=== PATIENT | female | born 1960 | race African-American/Black ===

== ENCOUNTER → 2018-04-12 | Outpatient (CLI) | payer OTHER ==
[~2018-04-12] MED LIST: DIATRIZOATE MEGL/DIATRIZOA SOD 30 ML BTL PO ONE; IOPAMIDOL 370 MG/ML 200 ML INFUS..BTL INJ ONE; SODIUM CHLORIDE 0.9% 50ML 50 ML ONE
--- NOTE | 2018-04-12 16:37 | Diagnostic Imaging Report ---
CT Abdomen And Pelvis with Intravenous Contrast INDICATION: Fever of unknown origin, elevated C-reactive protein TECHNIQUE: Thin collimation axial images obtained from the diaphragm to the level of the pubic symphysis following the uneventful administration of oral and 100 cc of low osmolar, nonionic intravenous contrast. RADIATION DOSE: Total DLP: 182.75 mGy*cm Estimated effective dose: (DLP x 0.015 x size factor) mSv CTDIvol has been reviewed. It is below the limits set by the Radiation Protocol Committee (RPC). COMPARISON: None. ABDOMEN FINDINGS: Lung Bases: Mild bibasilar atelectasis. Pericardial effusion measures 10 mm. The distal esophagus is patulous. No hiatal hernia. Liver: Decreased in attenuation relative to the spleen. This may be due to timing of the contrast bolus, however. No evidence for mass. Gallbladder: Present and appears normal. No biliary ductal dilatation. Pancreas: Normal attenuation without mass or ductal dilatation. Spleen: Normal in size. No evidence of mass.. Adrenal Glands: No evidence for mass. Kidneys: Right: Low attenuating lesion in the upper pole measures 4 mm and has the appearance of a cyst. No enhancing lesion. No hydronephrosis. Left: Low attenuating lesion the upper pole measures 9 mm and has the appearance of a cyst. No enhancing lesion. No hydronephrosis. Lymph Nodes: No enlarged abdominal or periaortic lymph nodes.. Aorta: Normal in diameter. Celiac artery branching is conventional. PELVIS FINDINGS: Bowel: Stomach: Laparoscopic gastric band is in appropriate orientation. The stomach is filled with enteric contrast. No mural thickening of the stomach. Small Bowel: Normal in caliber with normal wall thickness. The terminal ileum, while unopacified, demonstrates no evidence of mural thickening or hyperemia. Large Bowel: Normal in caliber with normal wall thickness. There are several scattered diverticula throughout the colon without associated inflammation. Appendix: Normal appendix. Bladder: Well distended and is normal. No ureteral dilatation. The uterus is present and normal in morphology. There are no adnexal masses. Lymph nodes: No enlarged mesenteric, pelvic, or inguinal lymph nodes. Bones: Unremarkable for age. Soft tissues: Unremarkable. IMPRESSION: 1. Small pericardial effusion and bibasilar atelectasis. Mildly patulous esophagus may be the result of reflux. 2. Laparoscopic gastric band in appropriate orientation. 3. No evidence of mass or lymphadenopathy. 4. Minimal burden of diverticulosis coli. No associated inflammation. No evidence for bowel obstruction or inflammation. Signed by: Dr. Josefa Dumont MD on 04/12/2018 4:34 PM
== END ==
LOC: CT 13:48
PROVIDERS: ATTEND Internal Medicine Infectious Disease
DX: R79.82 Elevated C-reactive protein (CRP) (principal)
CPT/HCPCS: 74177; Q9967